=== PATIENT | female | born 1935 | race Caucasian/White ===

== ENCOUNTER 2016-05-17 18:58 | Emergency (ER) | payer OTHER ==
[2016-05-17] MEDS ORDERED: NS 500 ML IV ONE (21:38)
--- NOTE | 2016-05-17 21:44 | PROVIDER DOCUMENTATION ---
HPI-General Adult - General Chief Complaint: Cough Stated Complaint: "BRONCHITIS" Time Seen by Provider: 05/17/16 21:26 Source: patient, family Allergies/Adverse Reactions: Patient Allergies Allergy/AdvReac Type Severity Reaction Status Date / Time No Known Allergies Allergy Verified 02/10/16 12:45 Home Medications: Home Medication List Medication Instructions Recorded Confirmed Last Taken Type Digoxin [Lanoxin] 125 microgm PO DAILY 12/19/12 02/11/16 02/11/16 06:30 History 125 Furosemide 40 mg PO DIRECTED 12/19/12 02/11/16 02/10/16 06:30 History 40 Levothyroxine [Synthroid] 50 microgm PO DAILY 12/19/12 02/11/16 02/11/16 06:30 History 50 Lorazepam 1 mg PO BID 12/19/12 02/11/16 02/10/16 18:30 History 1 Metoprolol [Lopressor] 25 mg PO BID 12/19/12 02/11/16 02/11/16 06:30 History 25 Temazepam 15 mg PO QHS 12/19/12 02/11/16 02/10/16 18:30 History 15 Estrogen Vag Cream [Premarin Vag 1 applicator VAG HS 11/23/14 02/11/16 Unknown History Cream] Oxycodone/APAP 10 mg/325 mg 1 each PO BID 11/23/14 02/11/16 03/08/15 History [Percocet-10] Warfarin Sodium [Coumadin] 6 mg PO DIRECTED 11/23/14 02/11/16 02/09/16 History 6 Ondansetron [Zofran Odt] 4 mg SL 4XDAY PRN PRN #10 02/09/16 02/11/16 02/08/16 Rx tab.rapdis 4 Oxycodone HCl/Acetaminophen 1 tab PO TID 02/10/16 02/11/16 Unknown History [Endocet 7.5-325 mg Tablet] Cephalexin [Keflex] 500 mg PO 4XDAY #20 capsule 02/11/16 Unknown Rx Oxycodone HCl/Acetaminophen 1 tab PO TID 02/11/16 02/11/16 02/11/16 06:30 History [Endocet 7.5-325 mg Tablet] 1 Oxycodone HCl/Acetaminophen 1 - 2 each PO Q4-6H PRN PRN #40 02/11/16 Unknown Rx [Percocet 10-325 mg Tablet] tablet Promethazine [Phenergan] 25 mg PO Q6-8H PRN PRN #20 tablet 02/11/16 Unknown Rx - History of Present Illness -Gen Adult Nature of Presenting Problems: Pt. is 81 yof that presents with c/o SOB for three days with cough. Pt. reports she was seen at [facility] yesterday and was put on Doxycycline for Bronchitis. Pt. 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 Pt. denies any CP or fever. Pt. does report a Hx of multiple valve replacement surgeries and a recent broken leg. Location of Pain/Injury: reports: none. denies: head, face, mouth, neck, chest , upper extremity, hand(s), abdomen, back, pelvis, genitalia, lower extremity, feet, upper body, lower body, generalized Pain Radiation: reports: no radiation Quality of Pain: reports: none. denies: aching, burning, cramping, dull, fullness, indigestion, pressure, sharp, stabbing, tearing, throbbing, tightness Severity: reports: moderate. denies: mild, severe Onset/Duration: reports: gradual, 3 days ago Timing: reports: still present. denies: improving, gone now, resolved prior to arrival, intermittent, constant, changing over time, getting worse Context/Activities at Onset: reports: none. denies: recent emotional stress, recent physical stress, recent trauma history, possible bad food, cold exposure , out of country travel Modifying Factors: improves with: nothing Associated Symptoms: reports: cough, shortness of breath. denies: anxiety, arm pain, back/neck pain, chest pain, constipation, diaphoresis, diarrhea, dizziness , EENT symptoms, fatigue, fever/chills, genitourinary problems, headaches, heartburn, joint pain, loss of appetite, malaise, muscle aches, sinus congestion /drainage, nausea, rash, seizure, sensory/motor loss, pain with inspiration, swelling/mass in abdomen, syncope, vomiting, weakness, trouble walking Similar Symptoms Previously?: Yes Recently seen or treated by another doctor?: Yes Review of Systems - Adult - REVIEW OF SYSTEMS - ADULT Constitutional: reports: see HPI. denies: chills, fever, fatique Eyes: reports: see HPI. denies: discharge, blurred vision, double vision Ears, Nose, Mouth & Throat: reports: see HPI. denies: ear pain, hearing loss, sinus problem, nose pain, loose teeth, mouth/dental pain, throat pain, throat swelling Cardiovascular: reports: see HPI. denies: chest pain, orthopnea, palpitations, syncope Respiratory: reports: see HPI, cough, shortness of breath, wheezing. denies: dyspnea on exertion, pleurisy Gastrointestinal: reports: see HPI. denies: abdominal pain, hematemesis, difficulty swallowing, frequent heartburn, vomiting Genitourinary: reports: see HPI. denies: dysuria, discharge, hematuria, hesitency, urgency Musculoskeletal: reports: see HPI. denies: bone pain, back pain, joint pain, muscle aches, neck pain Integumentary: reports: see HPI. denies: hives, itching, rash, skin thickening Neurological: reports: see HPI. denies: ataxia, dizziness/vertigo, headache/ migraines, numbness, seizure, tremors Psychiatric: reports: see HPI. denies: anxiety, depression, emotional problems , insomnia, panic attacks, suicidal thoughts Past History - Adult - PAST MEDICAL HISTORY-ADULT Review of Records: reports: Old Records Reviewed, Nursing Assessment Review, Medications Reviewed, Social history reviewed & non-contributory. Cardiovascular: reports: HTN, heart valve problem, pacemaker Psychiatric: reports: anxiety Endocrine/Immune: reports: thyroid disorder - PRIOR SURGERIES/PROCEDURES Surgical/Procedure History: reports: CABG, cholecystectomy, pacemaker, hysterectomy, other (thyroidectomy) - IMMUNIZATION STATUS Childhood Immunizations: See Nurse Assessment Flu Vaccine: See Nurse Assessment - FAMILY HISTORY Family History: reviewed, not pertinent - SOCIAL HISTORY Smoking: denies Physical Exam-General - PHYSICAL EXAM-ADULT Initial Vital Signs Reviewed: Yes - CONSTITUTIONAL General Appearance: alert, mild distress, thin. negative: obese, anxious, lethargic, slow to respond, obtunded, combative - EYES Eyes: PERRL/EOMI, pink conjunctivae. negative: conjuctival exudate, scleral icterus, subconjunctival hemorrhage - HEAD, EARS, NOSE, MOUTH & THROAT HENMT: normocephalic/atraumatic, moist mucous membranes. negative: angioedema, frontal tenderness, maxillary tenderness - NECK Neck: non-tender, full range of motion, supple, normal inspection. negative: lymphadenopathy, trachial deviation, thyromegaly - RESPIRATORY Respiratory: no respiratory distress, no accessory muscle use, crackles, wheezing. negative: rales, rhonchi, stridor, retractions, splinting - CARDIOVASCULAR Cardiovascular: normal peripheral pulses, no edema, other (mechanical heart valve). negative: extra beats, friction rub, irregularly irregular - CHEST (BREASTS) Chest/Breast: deferred - GASTROINTESTINAL (ABDOMEN) Abdominal Exam: normal bowel sounds, non tender, soft. negative: distended, guarding, rigid, rebound, tenderness, hernia, mass - GENITOURINARY Female Genitalia/Pelvic Exam: deferred Rectal Exam: deferred Hemoccult Exam: deferred - LYMPHATIC Lymphatic: no adenopathy. negative: axilla node tender, cervical node tenderness - MUSCULOSKELETAL Back Exam: normal inspection, no CVA tenderness, no vertebral tenderness. negative: ecchymosis, swelling, vertebral tenderness Extremity: normal range of motion, non-tender, normal gait, normal inspection. negative: deformity, erythema, inflammation, swelling, tenderness Peripheral Pulses: radial (R): 2+, radial (L): 2+ - SKIN Integumentary: warm/dry, pallor. negative: cyanosis, diaphoresis, ecchymosis, erythema, jaundice, mottled, petechiae, purpura, rash, swelling, tenderness - NEUROLOGIC Neurologic: grossly normal, no motor/sensory deficits. negative: aphasia, facial droop, focal weakness, motor weakness, sensory deficit - PSYCHIATRIC Psych/Mental Status: normal mood/affect, normal thought content, normal thought process, oriented x 3. negative: anxious, paranoid, tearful Progress - CONSULTS/PCP/HOSPITALIST Notification #1 *Consult/PCP/Hospitalist*: Dr. Langley Time Discussed: 00:04 Reason/Comments: Consult Consult Disposition: other (Increase lasix to daily and have her follow up with her knife edger) Departure - Departure Time of Disposition Order: 00:05 DIAGNOSIS: Acute exacerbation of CHF (congestive heart failure) Qualifiers: Congestive heart failure type: unspecified congestive heart failure type Qualified Code(s): I50.9 - Heart failure, unspecified Disposition: HOME Certified Medical Emergency: Emergent Condition: Stable Additional Instructions: Follow up with primary care physician Follow up with [facility] Take your lasix every day Return to ED for any concerns or worsening of symptoms ED Follow Up Instructions: You have been treated by a care provider in the Emergency Department. These instructions are being provided to you so you can have an understanding of how to care for yourself upon discharge. Upon discharge from the Emergency Department, you are responsible for making arrangements for follow-up care by a physician of your choice. Take all prescribed medications as directed. Return to the Emergency Department immediately for any new or worsening symptoms. You may call the Physician Referral phone number at [phone] to obtain a list of Physicians who are taking new patients. Attestation - Physician/ MARTI Attestation Patient care was provided by Advanced Practice Provider:: Yes Advanced Practice Provider:: Shakeel Thibodeaux Advanced Practice Provider documentation review:: The Mid-level provider documentation, treatment plan and medical decision making was reviewed by the physician who agrees with all treatment and medical decision making by the MLP.
--- NOTE | 2016-05-17 22:05 | ED EKG INTERP ---
EKG Interpretation - EKG Time of EKG reading by physician:: 22:04 EKG Read and Signed by:: Christopher Dodd EKG Interpretation (*Must complete 3 of following elements*): Abnormal ( Incomplete RBBB; ST & T wave abnormality, consider inferior ischemia; ST & T wave abnormality, consider anterior infarct) Rate: 63 Rhythm: Atrial-paced rhythm Attestation - Scribe Verification/Attestation Scribe:: Caleb Campbell Acting as Scribe for:: Christopher Dodd Scribe documention review:: This chart was documented by a scribe and accurately reflects the service the provider performed and the decisions made by the provider.
[2016-05-17 22:24] LABS: URINE CULTURE NEEDED? NO; URINE MICRO REVIEW NEEDED? NO; URINE SOURCE CLEAN CATCH
[2016-05-17 22:28] LABS: BILIRUBIN URINE NEGATIVE (NEGATIVE); BLOOD URINE TRACE (NEGATIVE); COLOR YELLOW; GLUCOSE URINE NEGATIVE (NEGATIVE); LEUKOCYTES URINE NEGATIVE (NEGATIVE); NITRITE URINE NEGATIVE (NEGATIVE); PROTEIN URINE 100 mg/dL (NEGATIVE); SP GRAVITY URINE 1.021; TURBIDITY URINE CLEAR (CLEAR); UROBILINOGEN URINE NORMAL (NORMAL)
[2016-05-17 22:30] LABS: UR EPITHELIAL CELLS <10 /HPF (<10); URINE BACTERIA NEGATIVE /HPF; URINE RBC <10 /HPF (<10); URINE WBC <10 /HPF (<10)
[2016-05-17 22:40] LABS: BASO% 1.9 % (0.0-0.8); EOS# 0.04 X1000 (0.0-0.7); EOS% 0.6 % (0.0-10.0); HEMATOCRIT 45.5 % (37.0-47.0); HEMOGLOBIN 15.1 g/dL (12.0-16.0); IMM GRAN# 0.03 X1000 (0.0-0.04); IMM GRAN% 0.5 % (0.0-0.5); LYMPH# 1.49 X1000 (1.2-3.4); LYMPH% 23.7 % (20.5-51.1); MANUAL DIFF NEEDED? NO; MCH 30.5 PG (27-31); MCHC 33.2 g/dL (33-37); MCV 91.9 FL (81-99); MONO# 1.17 X1000 (0.11-0.59); MONO% 18.6 % (1.7-9.3); MPV 10.3 FL (7.4-10.4); NEUT% 54.7 % (42.2-75.2); PLT 251 X1000 (130-400); RBC 4.95 XMIL (4.2-5.4)
[2016-05-17 22:41] LABS: INR 2.98; PROTIME 31.9 Seconds (9.2-11.7); PTT 41.3 Seconds (22.0-36.0)
[2016-05-17 23:30] LABS: AGAP 13; ALKALINE PHOSPHATASE 85 U/L (32-104); BUN 18 mg/dL (8-22); CALCIUM 8.8 mg/dL (8.8-10.2); CHLORIDE 100 mmol/L (98-107); CK PROFILE 50 U/L (24-173); COSMO 277; GOT 28 U/L (10-30); GPT 25 U/L (10-36); POTASSIUM 4.3 mmol/L (3.5-5.1); SODIUM 138 mmol/L (136-145); TCO2 25 mmol/L (25-35); TOTAL BILIRUBIN 0.41 mg/dL (0.20-1.00); TOTAL PROTEIN 7.3 g/dL (6.3-8.3)
[2016-05-18] MEDS ORDERED: LASIX IV ONE (00:07)
[2016-05-18 00:35] VITALS: BP 153/56
--- NOTE | 2016-05-18 05:37 | EKG Report ---
Test Performed on : 05/17/2016 10:02:19 PM Test Reason : SOB Blood Pressure : / mmHG Vent. Rate : 063 BPM Atrial Rate : 063 BPM P-R Int : 204 ms QRS Dur : 096 ms QT Int : 450 ms P-R-T Axes : 016 054 -31 degrees QTc Int : 460 ms Atrial-paced rhythm Incomplete right bundle branch block ST & T wave abnormality, consider inferior ischemia ST & T wave abnormality, consider anterior ischemia Abnormal ECG When compared with ECG of 10-FEB-2016 13:44, ST now depressed in Inferior leads ST more depressed in Lateral leads T wave inversion now evident in Inferior leads T wave inversion now evident in Anterior leads Unconfirmed Result
--- NOTE | 2016-05-18 07:18 | Diag Imaging Result Document ---
PROCEDURE NAME: CHEST-2 VIEWS - 05/17/2016 FRONTAL AND LATERAL CHEST, TWO VIEWS: COMPARISON: Compared to 03/09/2015. FINDINGS: A heart valve is present, as well as a left-sided pacemaker. The lungs are hyperexpanded. Mild increased AP diameter to the chest. No pleural effusions. No pulmonary edema. No pneumonia. IMPRESSION: 1. Emphysema. 2. No congestive failure.
== END 2016-05-18 00:34 | disposition home or self-care (01) ==
LOC: ED 18:58
DX: I50.9 Heart failure, unspecified (principal); R06.02 Shortness of breath; R06.2 Wheezing; I10 Essential (primary) hypertension; E07.9 Disorder of thyroid, unspecified; R05 Cough; R94.31 Abnormal electrocardiogram [ECG] [EKG]; Z79.899 Other long term (current) drug therapy; J43.9 Emphysema, unspecified; F41.9 Anxiety disorder, unspecified; Z95.0 Presence of cardiac pacemaker; Z95.1 Presence of aortocoronary bypass graft; Z79.01 Long term (current) use of anticoagulants
CPT/HCPCS: 71020; 80053; 81001; 82550; 83880; 84484; 85025; 85379; 85610; 85730; 93005; J1940; J7030